=== PATIENT | female | born 1980 | race Caucasian/White ===

== ENCOUNTER → 2016-07-30 | Outpatient (CLI) | payer MEDICAID ==
[~2016-07-30] MED LIST: AMOXICILLIN 50500 MG PO; ATARAX 25MG25 MG/TAB PO; CAMILA0.35 MG PO; CELEXA20 MG PO; DESYREL 50MG50 MG PO; DITROPAN 5MG TAB5 MG PO; KLONOPIN0.5 MG PO; LAMICTAL200 MG PO; LITHOBID; LORTAB 5/500 501 TAB PO; MIRENA52 MG IU; MIRTAZAPINE7.5 MG PO; NORCO 325 MG-51 TAB PO; PERCOCET 325 MG1 TA2 PO; PHENERGAN 25 TA25 MG PO; PHENERGAN25 MG RC; PRENATAL1 TA1 PO; TRAZADONE HYDR100 MG PO
== END ==
LOC: BHSO 08:33
DX: F43.10 Post-traumatic stress disorder, unspecified (principal)

== ENCOUNTER → 2016-12-07 | Outpatient (CLI) | payer MEDICAID | LOC: BHSO 10:20 | DX: F43.10 Post-traumatic stress disorder, unspecified (principal) ==

== ENCOUNTER → 2017-05-25 | Outpatient (CLI) | payer MEDICAID | LOC: BHSO 10:01 | DX: F43.10 Post-traumatic stress disorder, unspecified (principal) | CPT/HCPCS: G0463 ==

== ENCOUNTER → 2018-06-01 | Outpatient (CLI) | payer SELFPAY | LOC: BHSO 11:12 | DX: F43.10 Post-traumatic stress disorder, unspecified (principal) ==

== ENCOUNTER → 2018-08-02 | Outpatient (CLI) | payer OTHER | LOC: BHSO 14:20 | DX: F43.10 Post-traumatic stress disorder, unspecified (principal) | CPT/HCPCS: G0463 ==

== ENCOUNTER → 2019-08-02 | Outpatient (CLI) | payer SELFPAY | LOC: BHSO 16:20 | DX: F43.10 Post-traumatic stress disorder, unspecified (principal) | CPT/HCPCS: G0463 ==